=== PATIENT | female | born 1990 | race Caucasian/White ===

== ENCOUNTER 2016-11-29 09:52 | Emergency (ER) | payer BC ==
[~2016-11-29] VITALS: Ht 175.3 cm; Wt 86.2 kg
[2016-11-29 09:58] VITALS: BP 126/71
[2016-11-29] MEDS ORDERED: IBUPROFEN 600 MG TABLET PO ONE ×2 (10:01→10:30)
--- NOTE | 2016-11-29 10:28 | NUR ---
XRAY IN PROGRESS AT BS
== END 2016-11-29 10:55 | disposition home or self-care (01) ==
LOC: ER 09:55
DX: S93.602A Unspecified sprain of left foot, initial encounter (principal); X50.1XXA Overexertion from prolonged static or awkward postures, initial encounter; Y93.01 Activity, walking, marching and hiking; Y92.89 Other specified places as the place of occurrence of the external cause; Y99.8 Other external cause status
CPT/HCPCS: 73630; 99284; A4606; Z7610

== ENCOUNTER 2018-08-30 14:08 | Emergency (ER) | payer BC, OTHER ==
[~2018-08-30] VITALS: Ht 177.8 cm; Wt 90.7 kg
[2018-08-30 15:19] LABS: APPEARANCE,URINE Slightly Cloudy (CLEAR); BILIRUBIN,URINE SMALL (NEGATIVE); BLOOD, URINE Moderate Ery/uL (NEGATIVE); COLOR,URINE Yellow (YELLOW); KETONES,URINE Trace (NEGATIVE); LEUKOCYTE ESTERASE ,URINE Negative (NEGATIVE); NITRITE, URINE Negative (NEGATIVE); PH,URINE 6.5 (5.0-8.0); PROTEIN,URINE 30 mg/dl (NEGATIVE); UGLUCOSE Negative (NEGATIVE)
[2018-08-30] MEDS ORDERED: IBUPROFEN 600 MG TABLET PO ONE ×2 (15:19→15:30)
[2018-08-30 15:27] LABS: BASOPHILS % (AUTO) 0.3 % (0.0-2.0); EOSINOPHILS % (AUTO) 0.4 % (0.0-6.0); HEMATOCRIT 39 % (33-45); LYMPHOCYTES # (AUTO) 0.9 /CMM (0.8-4.8); LYMPHOCYTES % (AUTO) 19.4 % (20.0-44.0); MEAN CORPUSCULAR HGB CONC 33 g/dl (31.0-36.0); MEAN CORPUSCULAR VOLUME 84 fL (82-100); MONOCYTES # (AUTO) 0.5 /CMM (0.1-1.30); MONOCYTES % (AUTO) 10.6 % (2.0-12.0); NEUTROPHILS # (AUTO) 3.3 /CMM (1.8-8.9); NEUTROPHILS % (AUTO) 69.3 % (43.0-81.0); PLATELET COUNT (AUTO) 185 /CMM (150-450); RED BLOOD CELL COUNT(AUTO) 4.61 MIL/uL (4.0-5.2); WHITE BLOOD COUNT (AUTO) 4.8 K/uL (4.3-11.0)
[2018-08-30 15:29] LABS: BACTERIA,URINE Few /HPF (None Seen); SQUAMOUS EPITHELIAL CELL,UR Few /HPF (None Seen); WBC,URINE 0-2 /HPF (0-3)
[2018-08-30 15:37] LABS: CALCIUM, SERUM 9.1 mg/dL (8.5-10.1); CREATININE 0.9 mg/dL (0.6-1.3); POTASSIUM 3.8 mmol/L (3.5-5.1)
[2018-08-30 15:42] LABS: ALBUMIN 3.8 g/dL (3.4-5.0); BILIRUBIN,DIRECT 0.1 mg/dL (0.0-0.2); BILIRUBIN,TOTAL 0.5 mg/dL (0.2-1.0)
[2018-08-30 16:50] VITALS: BP 128/75
== END 2018-08-30 17:01 | disposition home or self-care (01) ==
LOC: ER 14:10
DX: R10.84 Generalized abdominal pain (principal); R31.9 Hematuria, unspecified
CPT/HCPCS: 36415; 80048-TC; 80076-TC; 81000-TC; 83690-TC; 84703-TC; 85025-TC

== ENCOUNTER 2018-09-06 22:06 | Emergency (ER) | payer OTHER ==
[~2018-09-06] VITALS: Ht 177.8 cm; Wt 88.5 kg
[2018-09-06 22:13] VITALS: BP 124/75
== END 2018-09-06 23:54 | disposition home or self-care (01) ==
LOC: ER 22:11
DX: S29.012A Strain of muscle and tendon of back wall of thorax, initial encounter (principal); M26.622 Arthralgia of left temporomandibular joint; Z60.2 Problems related to living alone; X58.XXXA Exposure to other specified factors, initial encounter; Y93.89 Activity, other specified; Y92.89 Other specified places as the place of occurrence of the external cause; Y99.8 Other external cause status